=== PATIENT | female | born 1955 | race Caucasian/White ===

== ENCOUNTER 2016-11-24 12:30 | Inpatient (IN) | payer SELFPAY ==
[~2016-11-24] VITALS: Ht 154.9 cm; Wt 113.5 kg
[~2016-11-24 12:30] MED LIST: ASPIRIN81 M1 PO; HYZAAR 100-11 TABLET PO; LEVOTHYROXINE25 MCG PO; LOVASTATIN20 MG PO; SERTRALINE HCL100 MG PO
[2016-11-24 13:54] LABS: HEMATOCRIT 41.2 % (36.0-46.0); MCH 28.5 PG (29.0-34.0); MCHC 32.8 G/DL (30.0-36.0); MCV 86.9 FL (83-99); MEAN PLAT.VOLUME 10.6 uM^3 (9.5-12.4); PLATELET COUNT 233 K/uL (156-360); RBC DIS.WIDTH-CV 14.6 % (11.8-14.6); RBC DIS.WIDTH-SD 46.6 % (39-53); RED BLOOD COUNT 4.74 M/uL (3.80-5.20); WHITE BLOOD COUNT 7.6 K/uL (4.1-10.2)
[2016-11-24 14:05] LABS: CHLORIDE 104 mEq/L (99-109); POTASSIUM 3.5 mEq/L (3.7-5.4); SODIUM 140 mEq/L (136-147)
[2016-11-24 14:06] LABS: GLUCOSE 89 mg/dL (70-99)
[2016-11-24 14:08] LABS: ANION GAP 10 MEQ/L (2-14)
[2016-11-24 14:10] LABS: GFR ESTIMATE (CALCULATED) > 59 mL/min/
[2016-11-24 14:11] LABS: UREA NITROGEN (BUN) 11 mg/dL (9-23)
[2016-11-24 14:18] LABS: TROP-I INTERPRETATION NEGATIVE; TROPONIN-I < 0.01 ng/mL (0.0-0.30)
[2016-11-24 14:24] LABS: INTER. NORMALIZED RATIO 1.1; PROTHROMBIN TIME 12.3 SEC (10.2-12.9)
[2016-11-24 14:26] LABS: PTT 30.2 SEC (25-37)
[2016-11-24] MEDS ORDERED: ZESTORETIC 20-1 EAC1 PO (14:38)
[2016-11-24] MEDS ORDERED: PROZAC40 MG PO (14:38)
[2016-11-24] MEDS ORDERED: OMEGA-3100 MG PO (15:30)
[2016-11-24] MEDS ORDERED: ALEVE220 MG PO (15:30)
[2016-11-24 19:30] VITALS: BP 150/90
[2016-11-24 19:53] LABS: TROP-I INTERPRETATION NEGATIVE; TROPONIN-I < 0.01 ng/mL (0.0-0.30)
[2016-11-24 20:11] LABS: Estimated Average Glucose 128 mg/dL (70-123); HEMOGLOBIN A1c (GLYCOHEMOGLOB) 6.1 % HGB (Below 5.7)
[2016-11-24 23:46] VITALS: BP 161/91
[2016-11-25 01:42] LABS: TROP-I INTERPRETATION NEGATIVE; TROPONIN-I < 0.01 ng/mL (0.0-0.30)
[2016-11-25 03:51] VITALS: BP 159/92
[2016-11-25 05:41] LABS: ANION GAP 9 MEQ/L (2-14); CHLORIDE 105 MEQ/L (99-109); GFR ESTIMATE (CALCULATED) > 59 mL/min/; MAGNESIUM 2.1 mg/dl (1.3-2.7); POTASSIUM 3.8 MEQ/L (3.7-5.4); SAMPLE HEMOLYSIS CHECK 0; SAMPLE ICTERIC CHECK 0; SAMPLE LIPEMIA CHECK 0; SODIUM 140 MEQ/L (136-147); UREA NITROGEN (BUN) 10 mg/dL (9-23)
[2016-11-25 05:51] LABS: GLUCOSE 116 mg/dL (70-99)
[2016-11-25 07:33] VITALS: BP 147/81
[2016-11-25 09:39] LABS: HDL CHOLESTEROL 37 MG/DL (Desirable>=50); LDL CHOLESTEROL 97 mg/dL (Desirable<100); NON-HDL CHOLESTEROL 139 mg/dL (Desirable<160); TOTAL CHOLESTEROL 176 mg/dL (Desirable<200); TRIGLYCERIDES 208 MG/DL (Normal: <150)
[2016-11-25 12:00] VITALS: BP 156/81
[2016-11-25 13:20] LABS: ADD MIUA? NO; BILIRUBIN NEGATIVE; BLOOD NEGATIVE; COLOR STRAW ((YELLOW)); GLUCOSE (STRIP) NEGATIVE; KETONES NEGATIVE; LEUKOCYTES NEGATIVE; NITRITE NEGATIVE; PROTEIN (STRIP) NEGATIVE; SPECIFIC GRAVITY 1.005 (1.000-1.030); UCUL ADDED? NO; UROBILINOGEN 0.2 MG/DL (0.2-1.0)
[2016-11-25 16:53] VITALS: BP 127/70
[2016-11-25 21:07] VITALS: BP 139/71
[2016-11-26 00:26] VITALS: BP 146/84
[2016-11-26 05:21] LABS: CHLORIDE 104 mEq/L (99-109); POTASSIUM 4.1 mEq/L (3.7-5.4); SODIUM 141 mEq/L (136-147)
[2016-11-26 05:23] LABS: GLUCOSE 110 mg/dL (70-99)
[2016-11-26 05:24] LABS: ANION GAP 11 MEQ/L (2-14)
[2016-11-26 05:25] LABS: TOTAL BILIRUBIN 1.1 mg/dL (0.0-1.0)
[2016-11-26 05:26] LABS: ALKALINE PHOSPHATASE 91 IU/L (3-129)
[2016-11-26 05:27] LABS: GFR ESTIMATE (CALCULATED) > 59 mL/min/
[2016-11-26 05:28] LABS: UREA NITROGEN (BUN) 13 mg/dL (9-23)
[2016-11-26 05:32] VITALS: BP 136/87
[2016-11-26 05:34] LABS: EOSINOPHIL (%) 2.2 % (0-5); EOSINOPHIL COUNT 0.1 K/uL (0-0.3); HEMATOCRIT 39.6 % (36.0-46.0); IMMATURE GRANULOCYTE (%) 0.9 % (0.0-0.7); IMMATURE GRANULOCYTE COUNT 0.1 K/uL; INSTRUMENT ABS NEUTROPHIL CT 3.9 K/uL; LYMPHOCYTE COUNT 1.5 K/uL (1.0-2.8); MCH 28.2 PG (29.0-34.0); MCHC 32.1 G/DL (30.0-36.0); MEAN PLAT.VOLUME 10.7 uM^3 (9.5-12.4); MONOCYTE (%) 4.8 % (3-12); MONOCYTE COUNT 0.3 K/uL (0-0.8); NEUTROPHIL (%) 66.4 % (45-76); NEUTROPHIL COUNT 3.9 K/uL (1.8-6.4); PLATELET COUNT 233 K/uL (156-360); RBC DIS.WIDTH-SD 48.2 % (39-53); WHITE BLOOD COUNT 5.9 K/uL (4.1-10.2)
[2016-11-26 08:43] VITALS: BP 131/78
[2016-11-26] MEDS ORDERED: LASIX20 MG PO (09:51)
[2016-11-26] MEDS ORDERED: ELIQUIS5 MG PO (09:51)
[2016-11-26] MEDS ORDERED: LISINOPRIL20 MG PO (09:51)
[2016-11-26 12:15] VITALS: BP 132/76
== END 2016-11-26 15:36 | disposition home or self-care (01) | DRG 308 ==
LOC: EME 12:30 → 4EAST 15:03 → EDOF 15:03 → CANRESERV 15:06 → ENRESERV 15:06 → 4EAST 19:43 → ENPENDDIS 11-26 → 4EAST 11-26 15:36
PROVIDERS: Hospitalist; Internal Medicine; Physician Assistant
DX: I48.91 Unspecified atrial fibrillation (principal); I11.0 Hypertensive heart disease with heart failure; E87.6 Hypokalemia; I50.31 Acute diastolic (congestive) heart failure; E78.5 Hyperlipidemia, unspecified; E66.9 Obesity, unspecified; J45.909 Unspecified asthma, uncomplicated; E03.9 Hypothyroidism, unspecified; Z68.42 Body mass index [BMI] 45.0-49.9, adult
CPT/HCPCS: 71020; 71275; 80048; 80048 91; 80053; 80061; 81003; 83036; 83735; 83880; 84443; 84484; 85025; 85027; 85610; 85730; 93005; 93306; 99281; 99285; G0378; J1650; J1940; J7030

== ENCOUNTER 2016-12-21 08:57 | Day surgery (SDC) | payer OTHER ==
[~2016-12-21] VITALS: Ht 154.9 cm; Wt 108.0 kg
[~2016-12-21 08:57] MED LIST changes: +ALEVE220 MG PO; +ELIQUIS5 MG PO; +LASIX20 MG PO; +LISINOPRIL20 MG PO; +METOPROLOL SUCC50 MG PO; +OMEGA-3100 MG PO; +PROZAC40 MG PO; +ZESTORETIC 20-1 EAC1 PO
== END 2016-12-21 11:38 | disposition home or self-care (01) ==
LOC: CATH 08:57
PROC: 5A2204Z Restoration of Cardiac Rhythm, Single (ICD-10-PCS; principal; 2016-12-21)
DX: I48.1 Persistent atrial fibrillation (principal); I11.0 Hypertensive heart disease with heart failure; I50.32 Chronic diastolic (congestive) heart failure; J45.909 Unspecified asthma, uncomplicated; E66.09 Other obesity due to excess calories; Z68.41 Body mass index [BMI] 40.0-44.9, adult; Z79.82 Long term (current) use of aspirin
CPT/HCPCS: 93005

== ENCOUNTER → 2016-12-29 | Outpatient (CLI) | payer OTHER | END | disposition home or self-care (01) | LOC: NUC 08:18 | DX: I48.91 Unspecified atrial fibrillation (principal) | CPT/HCPCS: 78452; 93017; A9500; J2785 ==